=== PATIENT | female | born 1960 | race Caucasian/White ===

== ENCOUNTER 2016-07-23 11:39 | Inpatient (IN) | payer OTHER ==
[~2016-07-23] VITALS: Ht 152.4 cm; Wt 67.0 kg
[~2016-07-23 11:39] MED LIST: CITA20TA5 PO; LOSA25TA5 PO; METO25TA35 PO; PRAV40TA2 PO; [UNRECOGNIZED DRUG - REMARK]
[2016-07-23] MEDS ORDERED: FURO20TA3 PO (12:15)
[2016-07-23] MEDS ORDERED: OMEP40CA6 PO (12:15)
[2016-07-23] MEDS ORDERED: ALBU0.63 NEB (12:15)
[2016-07-23] MEDS ORDERED: ASPIRIN 81 MG TABLET CHEW ONE ×2 (12:19→12:20)
[2016-07-23] MEDS ORDERED: ASPIRIN 81 MG TABLET CHEW PO ONE (12:30)
[2016-07-23] MEDS ORDERED: SODIUM CHLORIDE FLUSH 10ML SYR IVF ONE (12:30)
[2016-07-23] MEDS ORDERED: ACETAMINOPHEN 500 MG TABLET ONE (12:46)
[2016-07-23 12:47] LABS: HEMOGLOBIN 11.7 g/dL (11.7-16.4)
[2016-07-23 12:57] LABS: BLOOD UREA NITROGEN 10 mg/dL (7-18)
[2016-07-23] MEDS ORDERED: ACETAMINOPHEN 500 MG TABLET PO ONE (13:00)
[2016-07-23 13:04] LABS: DIFF TOTAL CELLS COUNTED 100 CELL DIFF
[2016-07-23 13:05] LABS: IS PT STATUS REG ER OR PRE ER? YES
[2016-07-23 13:05] LABS: VERIFY COUNTS? YES
[2016-07-23 13:06] LABS: GIANT PLATELETS 1+; LARGE PLATELETS 1+; POLYCHROMASIA 1+
[2016-07-23] MEDS ORDERED: PIPERACILLIN/TAZO/PMX 3.375GM 50 ML ONE (13:20)
[2016-07-23] MEDS ORDERED: PIPERACILLIN/TAZO/PMX 3.375GM 50 ML IV ONE (13:30)
[2016-07-23] MEDS ORDERED: LEVOFLOXACIN/PMX 750MG/150ML 150 ML IVPB ONE (13:30)
[2016-07-23] MEDS ORDERED: VANCOMYCIN PER PHARMACY MC ONE (13:30)
[2016-07-23] MEDS ORDERED: VANCOMYCIN 1,200 MG in SODIUM CHLORIDE 0.9% 250 ML IV ONE (13:30)
[2016-07-23] MEDS ORDERED: SODIUM CHLORIDE 0.9% 1,000ML IVBOLUS ONE ×2 (14:00→16:30)
[2016-07-23] MEDS ORDERED: TRAZODONE 50MG TABLET PO PRN (15:00)
[2016-07-23] MEDS ORDERED: DOCUSATE 100 MG CAPSULE PO PRN (15:00)
[2016-07-23] MEDS ORDERED: PIPERACILLIN/TAZO/PMX 3.375GM 50 ML IV SCH (15:00)
[2016-07-23] MEDS ORDERED: ONDANSETRON ODT 4 MG PO PRN (15:00)
[2016-07-23 15:38] LABS: IS PT STATUS REG ER OR PRE ER? YES
[2016-07-23] MEDS ORDERED: ALBUTEROL SULFATE 2.5 MG/3 ML HHN PRN (17:30)
[2016-07-23 18:00] VITALS: BP 95/60
[2016-07-23] MEDS: ENOXAPARIN 40 MG/0.4 ML SQ SCH (19:42)
[2016-07-23 20:37] VITALS: BP 116/74
[2016-07-23] MEDS ORDERED: METOPROLOL TARTRATE 25 MG TABLET PO SCH (21:00)
[2016-07-23 21:30] LABS: IS PT STATUS REG ER OR PRE ER? NO
[2016-07-23] MEDS: PRAVASTATIN 40 MG TABLET PO SCH (21:37)
[2016-07-23] MEDS: PIPERACILLIN/TAZO/PMX 3.375GM 50 ML IV SCH (23:00)
[2016-07-24] MEDS: ACETAMINOPHEN 325 MG TABLET PO PRN ×2 (00:13→04:19)
[2016-07-24 02:02] VITALS: BP 95/59
[2016-07-24] MEDS: PIPERACILLIN/TAZO/PMX 3.375GM 50 ML IV SCH ×2 (05:23→17:52)
[2016-07-24 06:35] LABS: BLOOD UREA NITROGEN 13 mg/dL (7-18)
[2016-07-24 06:38] VITALS: BP 96/61
[2016-07-24] MEDS ORDERED: FUROSEMIDE 40 MG/4 ML IV SCH (07:30)
[2016-07-24] MEDS ORDERED: ALBUTEROL SULFATE 2.5MG/0.5ML NPPB STA (07:35)
[2016-07-24 07:57] LABS: HEMOGLOBIN 10.8 g/dL (11.7-16.4)
[2016-07-24] MEDS ORDERED: METOPROLOL TARTRATE 25 MG TABLET PO SCH (08:00)
[2016-07-24] MEDS ORDERED: FUROSEMIDE 40 MG/4 ML IV ONE (08:00)
[2016-07-24] MEDS ORDERED: ALBUTEROL SULFATE 2.5 MG/3 ML NPPB PRN (08:00)
[2016-07-24] MEDS ORDERED: METOPROLOL TARTRATE 50 MG TABLET PO SCH (08:00)
[2016-07-24 08:01] LABS: DIFF TOTAL CELLS COUNTED 100 CELL DIFF
[2016-07-24 08:02] LABS: VERIFY COUNTS? YES
[2016-07-24 08:03] LABS: GIANT PLATELETS 1+; LARGE PLATELETS 1+; POLYCHROMASIA 1+
[2016-07-24] MEDS: methylPREDNISolone SOD SUCC 40 MG/ML IV SCH ×2 (08:55→17:52)
[2016-07-24] MEDS: CITALOPRAM 20 MG TABLET PO SCH (08:56)
[2016-07-24] MEDS: FUROSEMIDE 40 MG TABLET PO SCH (08:58)
[2016-07-24] MEDS ORDERED: FUROSEMIDE 20 MG/2 ML IV ONE (09:00)
[2016-07-24 13:06] VITALS: BP 105/68
[2016-07-24] MEDS: ALBUTEROL SULFATE 2.5 MG/3 ML NPPB SCH (17:45)
[2016-07-24] MEDS: POTASSIUM CHLORIDE 20 MEQ TAB.ER.PRT PO SCH (17:51)
[2016-07-24] MEDS: ENOXAPARIN 40 MG/0.4 ML SQ SCH (17:52)
[2016-07-24] MEDS: METOPROLOL TARTRATE 25 MG TABLET PO SCH (17:55)
[2016-07-24 19:42] VITALS: BP 104/67
[2016-07-24] MEDS: PRAVASTATIN 40 MG TABLET PO SCH (20:43)
[2016-07-25] MEDS: ALBUTEROL SULFATE 2.5 MG/3 ML NPPB SCH ×5 (00:40→20:21)
[2016-07-25] MEDS: methylPREDNISolone SOD SUCC 40 MG/ML IV SCH ×4 (01:32→23:12)
[2016-07-25] MEDS: PIPERACILLIN/TAZO/PMX 3.375GM 50 ML IV SCH ×4 (01:33→23:12)
[2016-07-25 03:27] VITALS: BP 123/77
[2016-07-25 05:14] VITALS: BP 101/54
[2016-07-25] MEDS: METOPROLOL TARTRATE 25 MG TABLET PO SCH ×3 (05:15→23:12)
[2016-07-25 05:20] LABS: HEMOGLOBIN 11.4 g/dL (11.7-16.4)
[2016-07-25 05:27] LABS: BLOOD UREA NITROGEN 16 mg/dL (7-18)
[2016-07-25 05:39] LABS: DIFF TOTAL CELLS COUNTED 100 CELL DIFF
[2016-07-25 05:41] LABS: GIANT PLATELETS 1+; LARGE PLATELETS 1+; VERIFY COUNTS? YES
[2016-07-25 05:43] LABS: POLYCHROMASIA 1+
[2016-07-25 06:30] VITALS: BP 111/69
[2016-07-25] MEDS: FUROSEMIDE 40 MG TABLET PO SCH (07:28)
[2016-07-25] MEDS: POTASSIUM CHLORIDE 20 MEQ TAB.ER.PRT PO SCH ×2 (07:28→16:37)
[2016-07-25] MEDS: CITALOPRAM 20 MG TABLET PO SCH (07:28)
[2016-07-25 13:59] VITALS: BP 140/87
[2016-07-25] MEDS: ENOXAPARIN 40 MG/0.4 ML SQ SCH (15:11)
[2016-07-25 19:42] VITALS: BP 131/86
[2016-07-25] MEDS: PRAVASTATIN 40 MG TABLET PO SCH (21:14)
[2016-07-25 23:11] VITALS: BP 127/77
[2016-07-26 00:09] VITALS: BP 107/70
[2016-07-26 05:18] LABS: HEMOGLOBIN 11.4 g/dL (11.7-16.4)
[2016-07-26 05:23] LABS: BLOOD UREA NITROGEN 15 mg/dL (7-18)
[2016-07-26 05:47] LABS: DIFF TOTAL CELLS COUNTED 100 CELL DIFF
[2016-07-26 05:51] LABS: VERIFY COUNTS? YES
[2016-07-26 05:52] LABS: POLYCHROMASIA 1+
[2016-07-26 05:53] LABS: GIANT PLATELETS 1+; LARGE PLATELETS 1+
[2016-07-26] MEDS: ALBUTEROL SULFATE 2.5 MG/3 ML NPPB SCH ×4 (06:55→20:20)
[2016-07-26] MEDS: methylPREDNISolone SOD SUCC 40 MG/ML IV SCH (08:00)
[2016-07-26] MEDS: PIPERACILLIN/TAZO/PMX 3.375GM 50 ML IV SCH ×2 (08:11→15:38)
[2016-07-26] MEDS: GUAIFENESIN/DM 200-20MG, 10ML UDC PO PRN ×2 (08:11→18:10)
[2016-07-26] MEDS: FUROSEMIDE 40 MG TABLET PO SCH (08:11)
[2016-07-26] MEDS: CITALOPRAM 20 MG TABLET PO SCH (08:11)
[2016-07-26] MEDS: POTASSIUM CHLORIDE 20 MEQ TAB.ER.PRT PO SCH ×2 (08:12→16:52)
[2016-07-26] MEDS: METOPROLOL TARTRATE 25 MG TABLET PO SCH (08:12)
[2016-07-26 08:17] VITALS: BP 125/79
[2016-07-26 15:26] VITALS: BP 150/78
[2016-07-26] MEDS: ENOXAPARIN 40 MG/0.4 ML SQ SCH (15:39)
[2016-07-26 16:51] VITALS: BP 126/73
[2016-07-26] MEDS: METOPROLOL TARTRATE 50 MG TABLET PO SCH (16:52)
[2016-07-26 19:10] VITALS: BP 147/81
[2016-07-26] MEDS: PRAVASTATIN 40 MG TABLET PO SCH (20:04)
[2016-07-27] MEDS: PIPERACILLIN/TAZO/PMX 3.375GM 50 ML IV SCH ×3 (00:02→16:59)
[2016-07-27 01:49] VITALS: BP 121/73
[2016-07-27] MEDS: METOPROLOL TARTRATE 50 MG TABLET PO SCH ×2 (05:09→16:59)
[2016-07-27 05:22] LABS: BLOOD UREA NITROGEN 20 mg/dL (7-18)
[2016-07-27 05:31] LABS: HEMOGLOBIN 10.9 g/dL (11.7-16.4)
[2016-07-27 06:53] VITALS: BP 117/70
[2016-07-27] MEDS: ALBUTEROL SULFATE 2.5 MG/3 ML NPPB SCH ×4 (07:22→19:51)
[2016-07-27] MEDS: CITALOPRAM 20 MG TABLET PO SCH (08:42)
[2016-07-27] MEDS: POTASSIUM CHLORIDE 20 MEQ TAB.ER.PRT PO SCH ×2 (08:42→16:59)
[2016-07-27] MEDS: FUROSEMIDE 40 MG TABLET PO SCH (08:42)
[2016-07-27 09:14] LABS: TOTAL IRON BINDING CAPACITY 209 mcg/dL (250-450)
[2016-07-27] MEDS: GUAIFENESIN/DM 200-20MG, 10ML UDC PO PRN (09:37)
[2016-07-27 13:20] VITALS: BP 107/65
[2016-07-27] MEDS: GUAIFENESIN ER 600 MG TABLET PO SCH ×2 (13:25→21:01)
[2016-07-27] MEDS: ENOXAPARIN 40 MG/0.4 ML SQ SCH (13:26)
[2016-07-27 16:57] VITALS: BP 119/68
[2016-07-27 19:50] VITALS: BP 110/55
[2016-07-27] MEDS: PRAVASTATIN 40 MG TABLET PO SCH (21:01)
[2016-07-28] MEDS: PIPERACILLIN/TAZO/PMX 3.375GM 50 ML IV SCH ×3 (00:27→16:23)
[2016-07-28 01:11] VITALS: BP 109/69
[2016-07-28] MEDS: ALBUTEROL SULFATE 2.5 MG/3 ML NPPB SCH ×5 (02:46→19:15)
[2016-07-28] MEDS: METOPROLOL TARTRATE 50 MG TABLET PO SCH ×2 (05:53→18:00)
[2016-07-28 06:01] LABS: ASPARTATE AMINO TRANSFERASE 100 U/L (15-37); BLOOD UREA NITROGEN 13 mg/dL (7-18)
[2016-07-28 06:09] LABS: HEMOGLOBIN 12.3 g/dL (11.7-16.4)
[2016-07-28 07:22] VITALS: BP 106/63
[2016-07-28] MEDS: GUAIFENESIN ER 600 MG TABLET PO SCH ×2 (08:08→20:24)
[2016-07-28] MEDS: POTASSIUM CHLORIDE 20 MEQ TAB.ER.PRT PO SCH ×2 (08:08→17:00)
[2016-07-28] MEDS: CITALOPRAM 20 MG TABLET PO SCH (08:08)
[2016-07-28] MEDS: FUROSEMIDE 40 MG TABLET PO SCH (08:08)
[2016-07-28 13:23] VITALS: BP 99/62
[2016-07-28] MEDS: ENOXAPARIN 40 MG/0.4 ML SQ SCH (15:22)
[2016-07-28 19:12] VITALS: BP 104/66
[2016-07-28] MEDS: PRAVASTATIN 40 MG TABLET PO SCH (20:24)
[2016-07-29] MEDS: PIPERACILLIN/TAZO/PMX 3.375GM 50 ML IV SCH ×2 (00:03→09:09)
[2016-07-29 01:34] VITALS: BP 118/74
[2016-07-29] MEDS: METOPROLOL TARTRATE 50 MG TABLET PO SCH ×2 (05:17→16:56)
[2016-07-29 05:49] LABS: ASPARTATE AMINO TRANSFERASE 59 U/L (15-37); BLOOD UREA NITROGEN 12 mg/dL (7-18)
[2016-07-29 05:53] LABS: HEMOGLOBIN 12.4 g/dL (11.7-16.4)
[2016-07-29 06:59] VITALS: BP 97/60
[2016-07-29] MEDS: ALBUTEROL SULFATE 2.5 MG/3 ML NPPB SCH ×4 (08:45→19:10)
[2016-07-29] MEDS: POTASSIUM CHLORIDE 20 MEQ TAB.ER.PRT PO SCH ×2 (09:48→16:56)
[2016-07-29] MEDS: CITALOPRAM 20 MG TABLET PO SCH (09:48)
[2016-07-29] MEDS: FUROSEMIDE 40 MG TABLET PO SCH (09:49)
[2016-07-29] MEDS: GUAIFENESIN ER 600 MG TABLET PO SCH ×2 (09:50→22:22)
[2016-07-29] MEDS ORDERED: PHARMACY MAY ADJ FOR RENAL FX MC PRN (12:00)
[2016-07-29] MEDS: AMPICILLIN/SULBACTAM 3 GM in SODIUM CHLORIDE 0.9% 100 ML IV SCH ×2 (12:15→16:56)
[2016-07-29 12:48] VITALS: BP 115/69
[2016-07-29] MEDS: ENOXAPARIN 40 MG/0.4 ML SQ SCH (14:26)
[2016-07-29] MEDS: ACETAMINOPHEN 325 MG TABLET PO PRN (14:28)
[2016-07-29 19:24] VITALS: BP 93/60
[2016-07-29 22:00] VITALS: BP 93/58
[2016-07-29] MEDS: PRAVASTATIN 40 MG TABLET PO SCH (22:22)
[2016-07-30] MEDS: AMPICILLIN/SULBACTAM 3 GM in SODIUM CHLORIDE 0.9% 100 ML IV SCH (01:00)
[2016-07-30 01:41] VITALS: BP 99/63
[2016-07-30] MEDS: METOPROLOL TARTRATE 50 MG TABLET PO SCH (05:37)
[2016-07-30 05:38] VITALS: BP 94/61
[2016-07-30 06:34] VITALS: BP 90/57
[2016-07-30] MEDS: ALBUTEROL SULFATE 2.5 MG/3 ML NPPB SCH ×2 (07:00→09:31)
[2016-07-30] MEDS ORDERED: AMOX1TAB64 PO (07:16)
[2016-07-30] MEDS ORDERED: GUAI600T22 PO (07:16)
[2016-07-30] MEDS ORDERED: POTA20TA14 PO (07:16)
[2016-07-30] MEDS ORDERED: TIOT18CA INH (07:27)
[2016-07-30] MEDS: GUAIFENESIN ER 600 MG TABLET PO SCH (08:53)
[2016-07-30] MEDS: POTASSIUM CHLORIDE 20 MEQ TAB.ER.PRT PO SCH (08:53)
[2016-07-30] MEDS: CITALOPRAM 20 MG TABLET PO SCH (08:53)
[2016-07-30] MEDS: FUROSEMIDE 40 MG TABLET PO SCH (08:54)
[2016-07-30 08:56] LABS: HEMOGLOBIN 12.9 g/dL (11.7-16.4)
[2016-07-30] MEDS ORDERED: AMOXICILLIN/CLAV 875-125MG TABLET PO SCH (09:00)
[2016-07-30 09:23] LABS: ANISOCYTOSIS 1+; GIANT PLATELETS 1+; LARGE PLATELETS 1+; POLYCHROMASIA 1+
[2016-07-30] MEDS ORDERED: PNEUMOCOCCAL 23 VACCINE IM-VACC ONE (12:00)
== END 2016-07-30 13:10 | disposition home or self-care (01) | DRG 189 ==
LOC: ED 13:52 → EDIP 14:20 → 5SO 17:25 → 4EST 07-29 21:46 → DCLOUNGE 07-30 11:18
PROVIDERS: ADMIT Internal Medicine; ATTEND Internal Medicine
DX: J96.21 Acute and chronic respiratory failure with hypoxia (principal); J18.9 Pneumonia, unspecified organism; E43 Unspecified severe protein-calorie malnutrition; E87.1 Hypo-osmolality and hyponatremia; I50.30 Unspecified diastolic (congestive) heart failure; I42.1 Obstructive hypertrophic cardiomyopathy; I10 Essential (primary) hypertension; I95.9 Hypotension, unspecified; K21.9 Gastro-esophageal reflux disease without esophagitis; K52.9 Noninfective gastroenteritis and colitis, unspecified; D64.9 Anemia, unspecified; E66.9 Obesity, unspecified; E86.1 Hypovolemia; J45.909 Unspecified asthma, uncomplicated; R74.0 Nonspecific elevation of levels of transaminase and lactic acid dehydrogenase [LDH]; R73.9 Hyperglycemia, unspecified; Z98.890 Other specified postprocedural states; Z79.899 Other long term (current) drug therapy; Z82.49 Family history of ischemic heart disease and other diseases of the circulatory system; Z99.81 Dependence on supplemental oxygen; Z87.01 Personal history of pneumonia (recurrent); Z68.28 Body mass index [BMI] 28.0-28.9, adult; Z23 Encounter for immunization
CPT/HCPCS: 36415; 71010; 71250; 80048; 80053; 82040; 82728; 83540; 83550; 83605; 83735; 83880; 84484; 85025; 85610; 85730; 87040; 87070; 87205; 90732; 93005; 93306; 94640; 96374; J0295; J1650; J2543; J3370; J7613; J2920; J7030; J7050

== ENCOUNTER → 2016-09-04 | Outpatient (CLI) | payer OTHER ==
[~2016-09-04] MED LIST changes: +ALBU0.63 NEB; +AMOX1TAB64 PO; +FURO20TA3 PO; +GUAI600T22 PO; +OMEP40CA6 PO; +POTA20TA14 PO; +TIOT18CA INH
== END | disposition home or self-care (01) ==
LOC: CFH 10:07
PROVIDERS: ATTEND Internal Medicine Cardiovascular Disease
DX: R91.8 Other nonspecific abnormal finding of lung field (principal); R59.1 Generalized enlarged lymph nodes; R06.09 Other forms of dyspnea
CPT/HCPCS: 71250; 93306